=== PATIENT | female | born 1965 ===

== ENCOUNTER 2022-04-21 08:21 | Outpatient (REF) | payer OTHER, SELFPAY ==
--- NOTE | ~2022-04-21 | XR_ITS ---
EXAMINATION: CHEST X-RAY AND LEFT FOOT X-RAY CLINICAL INFORMATION: Hypertension. Left foot pain. COMPARISON: None TECHNIQUE: 2 views of the chest. 3 views of the left foot. FINDINGS: Chest: The cardiac and mediastinal contours are normal. The lungs are clear. No pleural effusion or pneumothorax. Degenerative changes of the spine. Left foot: Bone alignment is normal. No fracture or dislocation. Degenerative changes at the first MTP joint with joint space narrowing, osteophyte formation and periarticular soft tissue ossification. Small plantar calcaneal spur. XR/XR chest 2V IMPRESSION: Chest: Unremarkable exam. Left foot: Degenerative changes at the first MTP joint. Plantar calcaneal spur.
--- NOTE | ~2022-04-21 | XR_ITS ---
EXAMINATION: CHEST X-RAY AND LEFT FOOT X-RAY CLINICAL INFORMATION: Hypertension. Left foot pain. COMPARISON: None TECHNIQUE: 2 views of the chest. 3 views of the left foot. FINDINGS: Chest: The cardiac and mediastinal contours are normal. The lungs are clear. No pleural effusion or pneumothorax. Degenerative changes of the spine. Left foot: Bone alignment is normal. No fracture or dislocation. Degenerative changes at the first MTP joint with joint space narrowing, osteophyte formation and periarticular soft tissue ossification. Small plantar calcaneal spur. XR/XR foot LT min 3V IMPRESSION: Chest: Unremarkable exam. Left foot: Degenerative changes at the first MTP joint. Plantar calcaneal spur.
[2022-04-21 11:26] LABS: MANUAL DIFF FLAG NO
[2022-04-21 11:50] LABS: Basophils Absolute Auto 0.2 X10*3/uL (0.0-0.2); Basophils Percent Auto 1.4 % (0-2); Eosinophils Absolute Auto 0.3 X10*3/uL (0.0-0.4); Eosinophils Percent Auto 3.1 % (0-4); Hemoglobin 13.9 g/dl (12.0-16.0); Imm Gran Abs Auto 0.03 X10*3/uL (0.00-0.03); Imm Gran Pct Auto 0.3 % (0.0-0.4); Lymphocytes Absolute Auto 2.3 X10*3/uL (1.2-4.9); Lymphocytes Percent Auto 21.4 % (20-40); Mean Corpuscular HGB Conc 31.6 g/dl (31.0-35.0); Mean Corpuscular Hemoglobin 27.2 pg (27.0-33.0); Mean Corpuscular Volume 86.1 fL (80.0-98.0); Mean Platelet Volume 10.2 fL (9.4-12.3); Monocytes Absolute Auto 0.6 X10*3/uL (0.1-1.2); Monocytes Percent Auto 5.8 % (2-11); Neutrophils Absolute Auto 7.4 x10*3/uL (2.0-8.3); Platelet Count 358 X10*3/uL (160-400); Red Blood Count 5.11 X10*6/uL (4.20-5.50); Red Cell Distribution Width 13.9 % (11.0-16.0); White Blood Count 10.9 X10*3/uL (4.8-10.8)
[2022-04-21 12:30] LABS: Alanine Aminotransferase 25 U/L (0-31); Albumin Level 4.1 g/dL (3.5-5.0); Alkaline Phosphatase 90 U/L (39-117); Anion Gap 10 (12-20); Aspartate Amino Transferase 16 U/L (5-31); Bilirubin Total 0.6 mg/dL (0.0-1.0); Blood Urea Nitrogen 18 mg/dL (9-16); Calcium 9.1 mg/dL (8.4-10.2); Carbon Dioxide 27 mmol/L (22-29); Chloride 107 mmol/L (96-108); Cholesterol 258 mg/dL; Estimated Glomerular Filt Rate > 60; Glucose Fasting 80 mg/dL (60-99); HDL Cholesterol 48 mg/dL; Iron 79 mcg/dL (30-160); LDL Cholesterol Calculated 175 mg/dl; Percent Iron Saturation 24 % (15-50); Potassium 4.3 mmol/L (3.3-5.1); Sodium 140 mmol/L (135-145); Total Iron Binding Capacity 323 mcg/dL (228-428); Total Protein 6.8 g/dL (6.5-8.0); Triglycerides 179 mg/dL; Unsaturated Iron Binding 244 ug/dL; Vitamin D 25-OH Total 30.8 ng/mL (>30)
[2022-04-21 14:12] LABS: Free T4 (Free Thyroxine) 0.92 ng/dL (0.71-1.85)
== END 2022-04-21 08:22 | disposition home or self-care (01) ==
LOC: HO.HMGCX 08:21
PROVIDERS: PCP Internal Medicine; Visit Provider Internal Medicine
DX: I10 Essential (primary) hypertension (principal); N92.0 Excessive and frequent menstruation with regular cycle; R05.9 Cough, unspecified; M79.672 Pain in left foot
CPT/HCPCS: 36415; 71046; 73630; 80053; 80061; 82306; 83540; 84439; 84443; 85025

== ENCOUNTER 2022-04-25 12:06 | Outpatient (REF) | payer OTHER, SELFPAY ==
[2022-04-25 19:20] LABS: CT PCR NOT DETECTED (Not Detect.); NG PCR NOT DETECTED (Not Detect.)
[2022-04-29 01:44] LABS: HPV 16 RNA NOT DETECTED (NOT DETECTED); HPV mRNA E6/E7 rflx Detected (Not Detected)
== END 2022-04-25 12:07 | disposition home or self-care (01) ==
LOC: HO.LNP 12:06
PROVIDERS: PCP Internal Medicine; Visit Provider Obstetrics & Gynecology
DX: Z01.419 Encounter for gynecological examination (general) (routine) without abnormal findings (principal); Z11.51 Encounter for screening for human papillomavirus (HPV); N93.9 Abnormal uterine and vaginal bleeding, unspecified
CPT/HCPCS: 0353U; 87624; 87625; 88142; 99202

== ENCOUNTER 2022-05-17 16:21 | Outpatient (REF) | payer OTHER, SELFPAY ==
--- NOTE | ~2022-05-17 | US_ITS ---
EXAM: Pelvic Ultrasound CLINICAL INDICATION: Abnormal uterine bleeding COMPARISON: None TECHNIQUE: The pelvis was evaluated using transabdominal and transvaginal imaging. Color Doppler imaging and spectral analysis of the bilateral ovaries was also performed. Today's examination is limited secondary to overlying bowel gas. FINDINGS: The uterus measures 9.0 x 5.0 x 5.3 cm in longitudinal by AP by transverse dimension. Uterus demonstrates overall heterogeneous echotexture which results in a somewhat ill-defined endometrium. The endometrial stripe is estimated to measure 0.8 cm. Several nabothian cysts are noted within the cervix. The left ovary measures approximately 2.3 x 2.3 x 2.6 cm and is normal. The right ovary measures approximately 3.3 x 2.1 x 1.5 cm and is also normal. There are no abnormal adnexal masses. There is no free fluid in the pelvis. US/US pelvic and transvaginal IMPRESSION: Heterogeneous echotexture of the uterus which results in a somewhat ill-defined endometrium. The endometrial stripe measures approximately 0.8 cm in thickness. Correlation with menstrual cycle recommended. Further evaluation can be obtained with MRI imaging if clinically indicated.
== END 2022-05-17 16:22 | disposition home or self-care (01) ==
LOC: HO.US 16:21
PROVIDERS: PCP Internal Medicine; Visit Provider Obstetrics & Gynecology
DX: N93.9 Abnormal uterine and vaginal bleeding, unspecified (principal)
CPT/HCPCS: 76830; 76856

== ENCOUNTER 2022-05-23 11:04 | Outpatient (REF) | payer OTHER, SELFPAY | END 2022-05-23 11:05 | disposition home or self-care (01) | LOC: HO.LNP 11:04 | PROVIDERS: PCP Internal Medicine; Visit Provider Obstetrics & Gynecology | DX: N93.9 Abnormal uterine and vaginal bleeding, unspecified (principal); R87.610 Atypical squamous cells of undetermined significance on cytologic smear of cervix (ASC-US); R87.810 Cervical high risk human papillomavirus (HPV) DNA test positive; K62.5 Hemorrhage of anus and rectum | CPT/HCPCS: 57454; 58100; 58110; 81025; 88305; 99212 ==

== ENCOUNTER 2022-06-07 09:19 | Outpatient (REF) | payer OTHER, SELFPAY ==
--- NOTE | ~2022-06-07 | MM_ITS ---
EXAMINATION: MM SCREENING DIGITAL BREAST TOMOSYNTHESIS, BILATERAL CLINICAL INFORMATION: Screening. Asymptomatic. Prior mammography [place] and no longer available. Age 56. The lifetime risk of breast cancer based on the Tyrer-Cuzick Model is 6%. COMPARISON: None (current study represents new baseline exam). TECHNIQUE: Digital breast tomosynthesis is performed in both the craniocaudal and mediolateral oblique views along with computer-aided detection (CAD). Synthesized 2D images are generated from the tomosynthesis. FINDINGS: There are scattered areas of fibroglandular density (ACR BI-RADS breast composition Category b). There are no significant masses, abnormal calcifications, or other abnormalities. The axilla and skin contours are unremarkable. MM/MM tomosynthesis screening BI IMPRESSION: No mammographic evidence of malignancy. ASSESSMENT: BI-RADS 1: Negative RECOMMENDATION: Routine annual mammography screening. This patient's information was entered into a reminder system with a target due date for their next mammogram.
== END 2022-06-07 09:20 | disposition home or self-care (01) ==
LOC: HO.MAMMO 09:19
PROVIDERS: PCP Internal Medicine; Visit Provider Obstetrics & Gynecology
DX: Z12.31 Encounter for screening mammogram for malignant neoplasm of breast (principal)
CPT/HCPCS: 77063; 77067

== ENCOUNTER 2022-06-13 11:28 | Outpatient (REF) | payer OTHER, SELFPAY | END 2022-06-13 11:29 | disposition home or self-care (01) | LOC: HO.LNP 11:28 | PROVIDERS: PCP Internal Medicine; Visit Provider Obstetrics & Gynecology | DX: N87.0 Mild cervical dysplasia (principal); N84.0 Polyp of corpus uteri; R79.89 Other specified abnormal findings of blood chemistry; N93.9 Abnormal uterine and vaginal bleeding, unspecified; Z71.2 Person consulting for explanation of examination or test findings | CPT/HCPCS: 88305; 99212 ==

== ENCOUNTER 2023-08-13 13:38 | Outpatient (AMB) | payer OTHER, SELFPAY ==
--- NOTE | 2023-08-13 13:48 | MHC.OFFWIV ---
Intake Vital Signs 08/13/23 14:35 Height 5 ft 2 in BP 140/80 H Blood Pressure Location Rt brachial Position Sitting Pulse 99 Pulse Source Pulse Oximeter Temp 98.0 F Temp Source Oral Pulse Oximetry (%) 97 Intake Visit Reasons: EP Rash bilateral hands Intake Note: pt is here today for rash bilateral hand Patient Tobacco Use Status: Never used Tobacco Allergies No Known Allergies Allergy (Verified 08/13/23 14:36) Do you need a note to return to daycare/school/sports/work: Yes HPI HPI Comments History of Present Illness Details Patient presents to the walk-in today for sick visit Complaining of rash to both hands 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 She did not follow up with PCP or dermatology due to insurance issues [facility] Family History Father Hypertension Mother Mental health disorder Alzheimer disease Social History Housing: House Patient Tobacco Use Status: Never used Tobacco e-Cigarette/Vaping Use: Never Used service: No Current occupational status: unemployed Cognitive needs: No Hearing needs: No Vision needs: Yes Female Reproductive History Menstrual Age of Menarche: 15 Review of Systems Const All systems reviewed & are unremarkable except as noted in HPI and below Physical Exam Vital Signs: Last Vital Signs Temp 98.0 F 08/13/23 14:35 Pulse 99 08/13/23 14:35 BP 140/80 H 08/13/23 14:35 Pulse Ox 97 08/13/23 14:35 General: awake, alert, oriented. Answers questions appropriately. Fully engaged in examination. Skin: warm, dry, intact. Diffuse, erythematous rash to both hands HEENT: Normocephalic. Hearing intact. Cardiac: External chest normal in appearance. Respiratory: No cough, audible wheezing or stridor. Speaking in full sentences. No angio or periorbital edema noted Abdomen: without gross distension. MS: No obvious swelling or deformities. Neurological: Oriented to person, place, time and situation. Thought process intact. No gait abnormalities appreciated. Psychiatric: Appropriate mood and affect. Good judgment and insight. Assessment & Plan Assessment & Plan (1) Eczema: Code(s): L30.9 - Dermatitis, unspecified Plan Betamethasone topical twice daily Prednisone 40 mg daily x5 days Patient advised on lifestyle modifications but unfortunately she is not able to change her job Follow up with PCP as planned Medications: New betamethasone dipropionate 0.05% 1 appl topical BID 45 grams 0RF prednisone 40 mg (2 x 20 mg) PO DAILY 5 days 10 tabs 0RF Coding Level of Care Code Est Pt Level 3 (33791) Diagnoses Eczema L30.9
[2023-08-13 14:35] VITALS: BP 140/80; PULSE 99; TEMP 36.7; O2SAT 97
== END 2023-08-13 14:53 | disposition home or self-care (01) ==
PROVIDERS: PCP Internal Medicine; Visit Provider Registered Nurse Emergency
DX: L30.9 Dermatitis, unspecified (principal)
CPT/HCPCS: 99213

== ENCOUNTER 2023-10-08 12:03 | Outpatient (AMB) | payer OTHER, SELFPAY ==
--- NOTE | 2023-10-08 12:17 | MHC.PC.OV ---
Vital Signs 10/08/23 12:18 Height 5 ft 2 in Weight 187 lb 6 oz BMI 34.3 BP 128/86 Blood Pressure Location Rt brachial Position Sitting Pulse 97 Pulse Source Pulse Oximeter Pulse Oximetry (%) 98 Oxygen Delivery Method Room Air Intake Visit Reasons: Rash on Bilateral Hands Allergies No Known Allergies Allergy (Verified 10/08/23 13:14) Medication List - Last Reconciled 10/08/23 by Britney Michel MD amlodipine-olmesartan 10-40 mg 1 tab PO DAILY betamethasone dipropionate 0.05% 1 appl topical BID medroxyprogesterone (Provera) 10 mg PO DAILY 10 days pravastatin 40 mg PO DAILY Tobacco use date assessed: 10/08/23 Dental Screening Dental Screen Date: 10/08/23 Did you have a dental visit in the last 12 months?: Yes Did you have a dental problem in the last 6 months where you did not have access to dental care?: No Was dental information given to patient?: Patient has dentist HPI Rash on Bilateral Hands HPI Details Patient presents for physical. Hypertension and hyperlipidemia are controlled on current medications. Patient reports persistent dry rash on her both hands. 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 Patient has been applying betamethasone ointment on and off with good relief PFSH Family History Father Hypertension Mother Mental health disorder Alzheimer disease Social History Housing: House Patient Tobacco Use Status: Never used Tobacco e-Cigarette/Vaping Use: Never Used service: No Current occupational status: unemployed Cognitive needs: No Hearing needs: No Vision needs: Yes Female Reproductive History Menstrual Age of Menarche: 15 Questionnaire PHQ-9 Over the last 2 weeks, how often have you been bothered by any of the following problems? 1. Little interest or pleasure in doing things: not at all 2. Feeling down, depressed, or hopeless: not at all 3. Trouble falling or staying asleep, or sleeping too much: not at all 4. Feeling tired or having little energy: not at all 5. Poor appetite or overeating: not at all 6. Feeling bad about yourself - or that you are a failure or have let yourself or your family down: not at all 7. Trouble concentrating on things, such as reading the newspaper or watching television: not at all 8. Moving or speaking so slowly that other people could have noticed. Or the opposite - being so fidgety or restless that you have been moving around a lot more than usual: not at all 9. Thoughts that you would be better off or of hurting yourself in some way: not at all Total score: 0 Depression Screening Interpretation: Negative Depression Screening Done: Yes 37426 - PHQ-9 Billing: Yes Source: Developed by Drs. Gavin Genao, Jazzy Davis, Georges Burns and colleagues, with an educational leonardo from [employer]. Thrive Questionnaire Date Thrive assessed: 10/08/23 I am a: Patient What is your living situation today?: I choose not to answer this question Within the past 12 months, did the food you bought not last and you didn't have the money to get more?: I choose not to answer this question Within the past 12 months, did you worry whether your food would run out before you got money to buy more?: I choose not to answer this question Do you have trouble paying for medicines?: I choose not to answer this question Do you have trouble getting transportation to medical appointments?: I choose not to answer this question Do you have trouble paying your heating and electricity bill?: I choose not to answer this question Do you have trouble taking care of your child, family member or friend?: I choose not to answer this question Do you have trouble with day-to-day activities such as bathing, preparing meals, shopping, managing finances, etc.?: I choose not to answer this question Are you currently unemployed and looking for a job?: I choose not to answer this question Are you interested in more education?: I choose not to answer this question Please select the resources that you would like help with: Housing/Senior Care Currently or been in a relationship where the following occur: I choose not to answer THRIVE Score: 0 AUDIT C Alcohol Use Questionnaire (AUDIT-C) 1. How often do you have a drink containing alcohol?: Never 3. How often do you have six or more drinks on one occasion?: Never Total Score: 0 Score Reviewed/Action Taken: Yes AMINAH-7 AMB Questionnaire AMINAH-7 Date AMINAH - 7 assessed: 10/08/23 Feeling nervous, anxious, or on edge: 0 = Not at all Not being able to stop or control worryin = Not at all Worrying too much about different things: 0 = Not at all Trouble relaxin = Not at all Being so restless that it is hard to sit still: 0 = Not at all Becoming easily annoyed or irritable: 0 = Not at all Feeling afraid as if something awful might happen: 0 = Not at all Total AMINAH-7 score (0-4 normal; 5-9 mild; 10-14 moderate; 15-21 severe): 0 Source: Developed by Drs. Gavin Genao, Jazzy Davis, Georges Burns and colleagues, with an educational leonardo from [employer]. AMINAH-7 Assessment Billing AMINAH-7 Assessment Tool: AMINAH-7 Assessment 28861 Review of Systems Const All systems reviewed & are unremarkable except as noted in HPI and below Eyes Reports no additional complaints ENT Reports no additional complaints Card Reports no additional complaints Resp Reports no additional complaints GI Reports no additional complaints Reports no additional complaints Physical exam (Primary Care) Vital Signs: Last Vital Signs Pulse 97 10/08/23 12:18 BP 128/86 10/08/23 12:18 Pulse Ox 98 10/08/23 12:18 Oxygen Delivery Method Room Air 10/08/23 12:18 BMI result Body Mass Index 34.3 Tobacco/Smoking Status: Tobacco use Status Tobacco use date assessed 10/08/23 10/08/23 12:19 Patient Tobacco Use Status Never used Tobacco 10/08/23 12:19 e-Cigarette/Vaping Use Never Used 10/08/23 12:19 PHQ-9: PHQ-9 Score PHQ-9: Total score 0 10/08/23 13:15 Depression Screening Interpretation: Negative Thrive Assessment: Date of Thrive Assessment Date Thrive assessed 10/08/23 10/08/23 12:19 Currently or been in a relationship where the following occur: I choose not to answer Const General: comfortable HENMT Head: Yes normal to inspection General nose exam: Normal external nose present Mouth: Normal oral and palatal mucosa present Eyes General: appearance normal, both eyes and all related structures Neck Neck: Yes no lymphadenopathy and Yes supple Resp Effort & Inspection: normal respiratory effort Auscultation: clear to auscultation bilaterally Cardio Rhythm: regular rhythm Heart sounds: S1 normal heart sound present and S2 normal heart sound present GI Inspection: Yes normal to inspection Palpation (GI): Soft to palpation Percussion: Yes normal to percussion Auscultation: normal bowel sounds Assessment and Plan Assessment & Plan (1) Hyperlipidemia: Code(s): E78.5 - Hyperlipidemia, unspecified Plan: Continue pravastatin return for fasting blood work (2) Annual physical exam: Code(s): Z00.00 - Encounter for general adult medical examination without abnormal findings Plan: Well-balanced diet regular physical activity discussed with the patient. She will schedule mammogram and declined colonoscopy (3) HTN (hypertension): Comment: > 10 yrs Code(s): I10 - Essential (primary) hypertension Plan: Continue current medications (4) Daphne of toe: Code(s): L84 - Corns and callosities Plan: Referred to podiatry Orders: Orders Comprehensive [place]. Panel Fast Today E78.5 - Hyperlipidemia, unspecified, I10 - Essential (primary) hypertension, Z00.00 - Encounter for general adult medical examination without abnormal findings Lipid Panel Today E78.5 - Hyperlipidemia, unspecified, I10 - Essential (primary) hypertension, Z00.00 - Encounter for general adult medical examination without abnormal findings TSH reflex Free T4 Today E78.5 - Hyperlipidemia, unspecified, I10 - Essential (primary) hypertension, Z00.00 - Encounter for general adult medical examination without abnormal findings Complete Blood Count Auto Diff Today E78.5 - Hyperlipidemia, unspecified, I10 - Essential (primary) hypertension, Z00.00 - Encounter for general adult medical examination without abnormal findings UA w Microscopic Today E78.5 - Hyperlipidemia, unspecified, I10 - Essential (primary) hypertension, Z00.00 - Encounter for general adult medical examination without abnormal findings Referrals Podiatry Referral L84 - Corns and callosities Medications: New cholecalciferol (vitamin D3) 25 mcg PO DAILY 90 tabs 3RF Refilled betamethasone dipropionate 0.05% 1 appl topical BID 45 grams 0RF Discontinued betamethasone dipropionate 0.05% Discontinued Reason: Doctor's Order 1 appl topical BID 45 grams 0RF medroxyprogesterone (Provera) start Provera 1 tablet daily from day 15-24 cyclically every months, day 1 being 1st day of menses Discontinued Reason: Doctor's Order 10 mg PO DAILY 10 days 30 tabs 0RF Coding Level of Care Code Est Pt Prev Care 40-64y(75308) Diagnoses Hyperlipidemia E78.5 Annual physical exam Z00.00 HTN (hypertension) I10 Daphne of toe L84 Additional Codes AMINAH-7 Assessment Billing - AMINAH-7 Assessment Tool: AMINAH-7 Assessment [id number] ([id number])
[2023-10-08 12:18] VITALS: BP 128/86; PULSE 97; O2SAT 98; BMI 34.3
== END 2023-10-08 15:49 | disposition home or self-care (01) ==
PROVIDERS: PCP Internal Medicine; Visit Provider Internal Medicine
DX: Z00.00 Encounter for general adult medical examination without abnormal findings (principal); E78.5 Hyperlipidemia, unspecified; I10 Essential (primary) hypertension; L84 Corns and callosities
CPT/HCPCS: 99396

== ENCOUNTER 2025-02-24 09:34 | Outpatient (REF) | payer MEDICAID, SELFPAY ==
[2025-02-24 13:44] LABS: MANUAL DIFF FLAG NO
[2025-02-24 13:59] LABS: Hematocrit 46.7 % (37.0-47.0); Hemoglobin 14.8 g/dl (12.0-16.0); Imm Gran Abs Auto 0.04 X10*3/uL (0.00-0.03); Imm Gran Pct Auto 0.5 % (0.0-0.4); Lymphocytes Absolute Auto 1.9 X10*3/uL (1.2-4.9); Mean Corpuscular HGB Conc 31.7 g/dl (31.0-35.0); Mean Corpuscular Hemoglobin 27.3 pg (27.0-33.0); Mean Corpuscular Volume 86.0 fL (80.0-98.0); NRBC Abs Auto 0.000 X10*3/uL (0.0-0.012); NRBC Pct Auto 0.0 /100WBC (0.0-0.2); Platelet Count 314 X10*3/uL (160-400); Red Blood Count 5.43 X10*6/uL (4.20-5.50); White Blood Count 7.6 X10*3/uL (4.8-10.8)
[2025-02-24 14:16] LABS: Appearance Urine Turbid; Glucose Urine UA Negative (Negative); PH 5.5 (5.0-9.0); Specific Gravity - Urine 1.025 (1.005-1.025)
[2025-02-24 14:56] LABS: Alanine Aminotransferase 106 U/L (0-31); Albumin Level 4.4 g/dL (3.5-5.0); Alkaline Phosphatase 110 U/L (39-117); Anion Gap 15 (12-20); Aspartate Amino Transferase 63 U/L (5-31); Blood Urea Nitrogen 19 mg/dL (9-16); Calcium 9.4 mg/dL (8.4-10.2); Carbon Dioxide 25 mmol/L (22-29); Chloride 105 mmol/L (96-108); Cholesterol 256 mg/dL (<200); Estimated Glomerular Filt Rate > 60; HDL Cholesterol 56 mg/dL (>40); Potassium 4.6 mmol/L (3.3-5.1); Sodium 140 mmol/L (135-145); Total Protein 7.4 g/dL (6.5-8.0); Triglycerides 158 mg/dL (<150)
== END 2025-02-24 09:35 ==
LOC: HO.HMGCLDS 09:34
PROVIDERS: PCP Internal Medicine; Visit Provider Internal Medicine
DX: I10 Essential (primary) hypertension (principal); E78.5 Hyperlipidemia, unspecified; E55.9 Vitamin D deficiency, unspecified; R79.89 Other specified abnormal findings of blood chemistry
CPT/HCPCS: 36415; 80053; 80061; 81001; 82306; 84443; 85025